=== PATIENT | male | born 1980 | race Caucasian/White ===

== ENCOUNTER 2018-01-08 19:43 | Emergency (ER) | payer OTHER, SELFPAY ==
[2018-01-08 19:44] VITALS: BP 120/85; PULSE 94; RESP 18; TEMP 36.9; O2SAT 97; BMI 28.8
[2018-01-08 20:36] LABS: Bacteria 0 SEEN /hpf (None Seen); Mucous, Urine 0 SEEN /hpf (<or=2+); Squamous Epithelial Cells - UA 0 SEEN /hpf (0-5)
[2018-01-08 20:49] LABS: Glucose, Dipstick Normal (Normal); Ketone-Dipstick Negative (Negative); Leukocyte Esterase-Dipstick 25 /ul (Negative); Nitrite-Dipstick Negative (Negative); Occult Blood-Urine 250 /ul (Negative); Protein-Dipstick 30 mg/dl (Negative); Urine Bilirubin Dipstick Negative (Negative); Urine Clarity Clear (Clear); Urine Urobilinogen Normal (Normal)
[2018-01-08 20:55] LABS: Color, Urine SEE COMMENT BELOW (Yellow)
[2018-01-08 21:11] LABS: Red Blood Cells-Urine 10-25 SEEN /hpf (0-5); White Blood Cells 0-5 SEEN /hpf (0-5)
[2018-01-08 21:37] VITALS: BP 120/84; PULSE 88; RESP 18; O2SAT 98
--- NOTE | 2018-01-08 21:55 | CT_ITS ---
STUDY: CT ABDOMEN AND PELVIS WITHOUT CONTRAST REASON FOR EXAM: Male, 37 years old. Blood in urine, kidney stones RADIATION DOSAGE (If Supplied By Facility): CTDIvol = ( 10.22 ) mGy, DLP = ( 538.71 ) mGycm TECHNIQUE: Transaxial images were obtained from the dome of the diaphragm to the symphysis pubis without oral contrast, and without intravenous contrast. Sagittal and coronal images were reconstructed. Individualized dose optimization techniques were used for this CT. COMPARISON: None. FINDINGS: The visualized lung bases are unremarkable. The visualized portions of the heart are within normal limits. Normal liver. Normal gallbladder and extrahepatic biliary system. Normal spleen. Normal pancreas. Normal bilateral adrenal glands. 8 mm stone in the pelvis and a 5 mm lower pole stone of the right kidney. Normal left kidney. Normal visualized stomach. Normal small intestine. Normal colon. The appendix is visualized and appears normal. Normal abdominal aorta. Normal inferior vena cava. Normal retroperitoneum. Normal urinary bladder. Small fatty umbilical hernia. Normal osseous structures. CT/Abdomen/Pelvis without Cont IMPRESSION: Right renal calculi. No hydronephrosis. Small fatty umbilical hernia. Electronically Signed: Shoaib Fletcher DO at 22:55 EDT Tel [phone], Service support ,
--- NOTE | 2018-01-08 21:56 | ED.VISSUMM ---
- ER Visit Summary Date of Service: 01/08/18 Chief Complaint: [Hematuria] History of Present Illness: The patient is a 37 M [who presents the emergency room with hematuria. It started this morning. Patient had a mild discomfort in his right testicle. Mild discomfort in his right lower abdomen. He has a history of kidney stones. Usually they are on the right. He is concerned he might have a tumor. No significant pain right now. No fevers or chills.] Physical Examination: [] WN WD NAD PERRL EOMI MMM NECK supple and nontender, no masses RRR no murmur rub or gallop, no peripheral edema, symmetric radial pulses CTAB no respiratory distress ABDOMEN is soft and nontender, normal bowel sounds, no distension, no rebound or guarding SKIN is warm and dry no rashes Alert and Oriented x3, CN II-XII in tact, no motor or sensory deficits, gait normal No lymphadenopathy Test Results: [] Emergency Department Course and Treatment: [I do think this is likely due to a kidney stone. Urinalysis shows hematuria. CT will be obtained. BMP will be checked. CMP was unremarkable. CT she was no kidney stone. I do think small kidney stone that has passed or did not show on CT is the most likely diagnosis however I did refer him to urology to follow-up for his hematuria. He is concerned about possible mass. I do think this is unlikely given his age and risk factors however he does understand that he may need cystoscopy] Treatment Plan: [] Disposition: [Discharge] Impression: [Hematuria This note was generated with [employer] dictation software. It may contain incorrect words, spelling, and punctuation that were not noted in review of the chart prior to signing ED Disposition - Plan for ED Patient: Chief Complaint: Complaint Referrals: Care Physician,No Primary [Primary Care Provider] -
[2018-01-08 22:44] LABS: Anion Gap 4 (5-15); BUN 15 mg/dL (7-18); BUN/Creat Ratio 12.8 RATIO (10-20); Calcium,Total 8.7 mg/dL (8.5-10.1); Chloride 105 mmol/L (98-107); Creatinine, Serum 1.17 mg/dL (0.70-1.30); EST Glomerular Filtration Rate 74 mL/min (>60); Est Glom Filt Rate - Afr Amer 90 mL/min (>60); Estimated Creatinine Clearance 85.61 ml/min; Glucose 91 mg/dL (74-106); Potassium 3.8 mmol/L (3.5-5.1); Sodium Level 138 mmol/L (136-145)
--- NOTE | 2018-01-08 23:40 | ED.DEP ---
ED Disposition - Plan for ED Patient: Chief Complaint: Complaint Instructions: ED Hematuria Referrals: Anthony Wayne MD [STAFF PHYSICIAN] - 5-7 Days
== END 2018-01-09 00:12 | disposition home or self-care (01) ==
LOC: ED 21:57
PROVIDERS: Emergency Provider Emergency Medicine
DX: R31.9 Hematuria, unspecified (principal); Z87.442 Personal history of urinary calculi
CPT/HCPCS: 74176; 80048; 81001; 99282

== ENCOUNTER → 2018-01-25 14:10 | Outpatient (CLI) | payer SELFPAY ==
--- NOTE | 2018-01-25 14:17 | RAD_ITS ---
STUDY: X-RAY - ABDOMEN/PELVIS REASON FOR EXAM: Male, 37 years old. Right-sided kidney stone. TECHNIQUE: Single AP view of the abdomen / pelvis. COMPARISON: CT scan of 01/08/2018. FINDINGS: Normal visualized lung bases. There is a right ureteral stent in typical location. No definite renal or ureteral stones are seen, but there is prominent fecal material overlying the right kidney. There is an unremarkable bowel gas pattern. There is no demonstrated free abdominal air. The visualized liver, spleen and kidneys are grossly normal in size and morphology. Normal soft tissue structures. Normal visualized osseous structures. RAD/Abdomen Single View IMPRESSION: Right ureteral stent in typical location. No definite renal or ureteral stones are seen. Electronically Signed: Jose Sánchez MD at 17:52 EDT , Service support ,
== END ==
PROVIDERS: Visit Provider Urology
DX: N20.0 Calculus of kidney (principal)
CPT/HCPCS: 74018